=== PATIENT | female | born 2000 | race Hispanic/Latino ===

== ENCOUNTER 2023-11-23 10:11 | Emergency (ER) | payer OTHER ==
[~2023-11-23] VITALS: Ht 149.9 cm; Wt 54.4 kg
[2023-11-23 10:12] VITALS: BP 109/64; PULSE 115; RESP 20
[2023-11-23] MEDS ORDERED: CLIN-141 PO (11:50)
[2023-11-23] MEDS ORDERED: ACETAMINOPHEN 500 MG TABLET PO ONE (12:00)
[2023-11-23] MEDS ORDERED: CEFTRIAXONE 1G VIAL IM ONE (12:00)
== END 2023-11-23 12:51 | disposition home or self-care (01) ==
LOC: EDH 10:11
DX: K02.9 Dental caries, unspecified (principal)
CPT/HCPCS: 99283; 96372; J0696